=== PATIENT | female | born 1970 | race Two or more races ===

== ENCOUNTER 2020-12-30 09:30 | Day surgery (SDC) | payer OTHER ==
[~2020-12-30 09:30] MED LIST: DILTIAZEM ER300 MG PO; MELOXICAM7.5 MG PO; PEPCID40 MG PO; PREVASTATIN PO; SYNTHROID50 MCG PO; ZETIA PO; ZOLOFT50 MG PO
== END 2020-12-30 22:20 | disposition home or self-care (01) ==
LOC: CIR.AMB 09:30
PROVIDERS: ATTEND Specialist
DX: N84.0 Polyp of corpus uteri (principal); Z20.822 Contact with and (suspected) exposure to COVID-19

== ENCOUNTER 2021-01-10 07:33 | Emergency (ER) | payer OTHER ==
[~2021-01-10] VITALS: Ht 157.5 cm; Wt 78.0 kg
== END 2021-01-10 16:29 | disposition home or self-care (01) ==
LOC: ER 07:33
DX: K52.9 Noninfective gastroenteritis and colitis, unspecified (principal); K51.90 Ulcerative colitis, unspecified, without complications

== ENCOUNTER 2021-06-02 13:59 | Emergency (ER) | payer OTHER ==
[~2021-06-02] VITALS: Ht 157.5 cm; Wt 78.0 kg
[2021-06-02] MEDS ORDERED: HYDROXYCHLOROQ200 MG (14:22)
[2021-06-02] MEDS ORDERED: DICLOFENAC SODI75 MG PO (18:08)
== END 2021-06-02 18:33 | disposition home or self-care (01) ==
LOC: ER 13:59
DX: M94.0 Chondrocostal junction syndrome [Tietze] (principal)